=== PATIENT | male | born 1990 | race Hispanic/Latino ===

== ENCOUNTER 2018-08-01 11:10 | Emergency (ER) | payer OTHER ==
[2018-08-01 12:05] VITALS: BP 150/82; PULSE 80; RESP 18; TEMP 98.6; O2SAT 99
--- NOTE | 2018-08-01 12:39 | ED PDOC ---
Lower Extremity Pain/Injury Time Seen by Provider: 08/01/18 12:18 Chief Complaint (Nursing): Lower Extremity Problem/Injury Chief Complaint (Provider): left foot injury History Per: Patient History/Exam Limitations: no limitations Onset/Duration Of Symptoms: Days (x1) Current Symptoms Are (Timing): Still Present Additional Complaint(s): Lemuel Gold is a 28 year old male, with no significant past medical history, who presents to the emergency department for evaluation of left foot injury onset last night. Patient states he was at a concert yesterday when a angelique who was running from the police dropped a large canister on his left foot. Patient is currently complaining of pain and bruising to toes but denies any great toe pain or other injuries. No further medical complaints PMD: Non [facility] provider. Past Medical History Reviewed: Historical Data, Nursing Documentation, Vital Signs Vital Signs: Last Vital Signs Temp 98.6 F 08/01/18 12:03 Pulse 80 08/01/18 12:03 Resp 18 08/01/18 12:03 BP 150/82 08/01/18 12:03 Pulse Ox 99 08/01/18 12:03 - Medical History PMH: No Chronic Diseases - Surgical History Surgical History: No Surg Hx - Family History Family History: States: Unknown Family Hx - Social History Current smoker - smoking cessation education provided: No Alcohol: Social Drugs: Denies - Home Medications Home Medications: Ambulatory Orders Medication Instructions Recorded Acetaminophen with Codeine 1 tab PO Q6H PRN #15 tab 08/01/18 [Tylenol with Codeine No. 3 300 mg-30 mg] - Allergies Allergies/Adverse Reactions: Allergies Allergy/AdvReac Type Severity Reaction Status Date / Time No Known Allergies Allergy Verified 08/01/18 12:02 Review of Systems ROS Statement: Except As Marked, All Systems Reviewed And Found Negative Musculoskeletal: Positive for: Foot Pain (left toes bruising) Physical Exam - Reviewed Nursing Documentation Reviewed: Yes Vital Signs Reviewed: Yes - Physical Exam Appears: Positive for: No Acute Distress Head Exam: Positive for: ATRAUMATIC, NORMOCEPHALIC Skin: Positive for: Normal Color, Warm, Dry Eye Exam: Positive for: Normal appearance Neck: Positive for: Painless ROM Respiratory: Negative for: Respiratory Distress Extremity: Positive for: Normal ROM (lower extremities), Tenderness (Tenderness and ecchymosis to 3rd, 4th and 5th toes.), Other (Normal distal pulses). Negative for: Deformity (No bony deformities) Neurologic/Psych: Positive for: Alert, Oriented - ECG O2 Sat by Pulse Oximetry: 99 (RA) Pulse Ox Interpretation: Normal Medical Decision Making Medical Decision Making: Time: 12:18 Initial Impression: Toe injuries Initial Plan: --Motrin tab 600mg PO --Foot left 3 views routine [RAD] 14:11 Foot X-Ray FINDINGS: BONES: Displaced fractures of the 3rd, 4th and 5th distal phalanges. JOINTS: Normal. SOFT TISSUES: Normal. OTHER FINDINGS: None. IMPRESSION: Displaced fractures of the 3rd, 4th and 5th distal phalanges. Scribe Attestation: Documented by Chao Alex, acting as a scribe for Lucia Lara PA-C Provider Scribe Attestation: All medical record entries made by the Scribe were at my direction and personall y dictated by me. I have reviewed the chart and agree that the record accurately reflects my personal performance of the history, physical exam, medical decision making, and the department course for this patient. I have also personally directed, reviewed, and agree with the discharge instructions and disposition. Disposition - Clinical Impression Clinical Impression: Toe fracture, left - Patient ED Disposition Is Patient to be Admitted: No - Disposition Referrals: Josué Hall DPM [[facility]] - Disposition: Routine/Home Disposition Time: 14:50 Condition: GOOD Prescriptions: Acetaminophen with Codeine [Tylenol with Codeine No. 3 300 mg-30 mg] 1 tab PO Q6H PRN #15 tab PRN Reason: Pain, Severe (8-10) Instructions: Toe Fracture Forms: [place] (Arabic)
--- NOTE | 2018-08-01 14:13 | RAD ---
Date of service: 08/01/2018 PROCEDURE: Left Foot Radiographs. HISTORY: pain 3-5th toes COMPARISON: None. FINDINGS: BONES: Displaced fractures of the 3rd, 4th and 5th distal phalanges. JOINTS: Normal. SOFT TISSUES: Normal. OTHER FINDINGS: None. IMPRESSION: Displaced fractures of the 3rd, 4th and 5th distal phalanges.
--- NOTE | 2018-08-01 16:48 | CP.PCM.CON ---
History of Present Illness - History of Present Illness History of Present Illness: Podiatry consult note for Dr. Hall, 28 year old male, with no significant past medical history, who presents to the ed for evaluation of left foot injury onset last night after a nitrous oxide tank had falled on it. Patient states he was at a concert yesterday when a angelique who was running from the police dropped a large canister on his left foot. Patient is currently complaining of pain and bruising to toes but denies any great toe pain or other injuries. No further pedal complains. Denies f/n/v/sob. Patient states he has been elevating his left lower extremity, and pain is slightly controlled with the pain medicine Pmhx: none Pshx: left and right arm surgery Allergies: nickel Social; denies smoking or recreational drugs, admits to drinking socially. Past Patient History - Infectious Disease Hx of Infectious Diseases: None - Past Social History Alcohol: Social Drugs: Denies - PSYCHIATRIC Hx Substance Use: No - SURGICAL HISTORY Hx Surgeries: Yes Hx Orthopedic Surgery: Yes (left arm surgery) - ANESTHESIA Hx Anesthesia: Yes Meds Home Medications: Home Medication List Medication Instructions Recorded Confirmed Type Acetaminophen with Codeine 1 tab PO Q6H PRN #15 tab 08/01/18 Rx [Tylenol with Codeine No. 3 300 mg-30 mg] Allergies/Adverse Reactions: Allergies Allergy/AdvReac Type Severity Reaction Status Date / Time No Known Allergies Allergy Verified 08/01/18 12:02 Physical Exam - Constitutional Appears: Well, Non-toxic, No Acute Distress - Head Exam Head Exam: ATRAUMATIC, NORMOCEPHALIC - Extremities Exam Additional comments: Left lower extremity exam: vascular: Dp/pt 2/4, CFT <3 secs x5, TG warm to warm, edema and erythema noted to the 3/4/5th digits. neuro: protective sensation intact via ipswich 4/4 Derm: no open lesions, edema and erythema noted to the third,fourth and fifth digits, ecchymosis noted to the dorsal and plantar aspect of 3/4/5th digit.no clinical signs of infection Ortho: unable to move 3/4/5 secondary to guarding, pain on palpation to the 3/4/5 met shaft and distally. - Neurological Exam Neurological exam: Alert, Oriented x3 - Psychiatric Exam Psychiatric exam: Normal Affect, Normal Mood - Skin Skin Exam: Normal Color Results - Vital Signs Recent Vital Signs: Last Vital Signs Temp 98.6 F 08/01/18 12:03 Pulse 80 08/01/18 12:03 Resp 18 08/01/18 12:03 BP 150/82 08/01/18 12:03 Pulse Ox 99 08/01/18 14:51 Assessment & Plan - Assessment and Plan (Free Text) Assessment: 28 yo male with pmhx seen in the ED for pain and swelling to the left 3/4/5 toes after traumatic injury. Plan: Patient seen and evaluated History and plan discussed in detail with the attending, Dr Hall X-rays ordered and reviewed; distal phalanx fracture of third, fourth and fifth digits noted Patient advised to continue elevating and icing the left lower extremity Well padded dressing applied to the left foot and wrapped with lori. Surgical shoe dispensed; advised to WBAT Rx antiinflammatory by the ED doctor. Patient advised to follow up with Dr. Hall this week Patient to keep the dressing d/c/i.
== END 2018-08-01 15:06 | disposition home or self-care (01) ==
LOC: SUPCPDRO 11:10 → H.ER 11:10
DX: S92.302A Fracture of unspecified metatarsal bone(s), left foot, initial encounter for closed fracture (principal); W22.8XXA Striking against or struck by other objects, initial encounter; Y92.89 Other specified places as the place of occurrence of the external cause